=== PATIENT | male | born 1955 | race Caucasian/White ===

== ENCOUNTER 2025-05-24 20:41 | Emergency (ER) | payer MEDICARE, OTHER ==
[2025-05-24 21:28] LABS: BASOPHILS ABSOLUTE AUTO 0.06 K/uL (0.00-0.10); BASOPHILS PERCENT AUTO 0.8 % (0.1-1.3); EOSINOPHILS ABSOLUTE AUTO 0.30 K/uL (0.00-0.40); EOSINOPHILS PERCENT AUTO 4.1 % (0.0-5.4); IMMATURE GRAN ABSOLUTE AUTO 0.03 K/uL (0.00-0.23); IMMATURE GRAN PERCENT AUTO 0.4 % (0.0-0.7); LYMPHOCYTES ABSOLUTE AUTO 1.16 K/uL (0.8-3.3); LYMPHOCYTES PERCENT AUTO 15.7 % (11.4-47.7); MONOCYTES ABSOLUTE AUTO 0.44 K/uL (0.20-0.90); MONOCYTES PERCENT AUTO 6.0 % (3.3-12.6); NEUTROPHILS ABSOLUTE AUTO 5.40 K/uL (1.0-7.6); NEUTROPHILS PERCENT AUTO 73.0 % (40.0-78.1); PLATELET COUNT,PLT 158 K/uL (130-375); RED BLOOD CELL COUNT 4.42 M/uL (4.14-5.76); WHITE BLOOD CELL COUNT,WBC 7.4 K/uL (3.2-11.0)
[2025-05-24 21:51] LABS: BLOOD UREA NITROGEN,BUN 21.0 mg/dL (7-18); CARBON DIOXIDE,CO2 25.0 mmol/L (21-32); CHLORIDE,CL 105.0 mmol/L (100-108); CREATININE 0.9 mg/dL (0.8-1.3); EST CRCL DRUG DOSING (CG) 73.44 mL/min; ESTIMATED GFR 93.0 mL/min (>60); GLUCOSE RANDOM 124.0 mg/dL (74-106); POTASSIUM,K 3.7 mmol/L (3.6-5.2); SODIUM,NA 140.0 mmol/L (140-148); TROPONIN I HIGH SENSITIVITY 11.1 pg/mL (<=60.3)
== END 2025-05-24 23:46 | disposition home or self-care (01) ==
LOC: JP.ED 20:41
DX: R55 Syncope and collapse (principal); E86.0 Dehydration; Z88.8 Allergy status to other drugs, medicaments and biological substances; Z79.899 Other long term (current) drug therapy
CPT/HCPCS: 36415; 80048; 84484; 85025; 96360; 96361; 99283; 99284; J7030